=== PATIENT | male | born 1965 | race Caucasian/White ===

== ENCOUNTER 2025-03-28 13:52 | Outpatient (CLI) | payer BC, SELFPAY | END 2025-03-28 13:53 | disposition home or self-care (01) | PROVIDERS: PCP Family Medicine; Visit Provider Family Medicine | DX: M54.16 Radiculopathy, lumbar region (principal); M51.369 Other intervertebral disc degeneration, lumbar region without mention of lumbar back pain or lower extremity pain | CPT/HCPCS: 62323; J0702; Q9966 ==

== ENCOUNTER 2025-08-29 09:26 | Outpatient (CLI) | payer BC, SELFPAY | END 2025-08-29 09:27 | disposition home or self-care (01) | LOC: RAD 09:28 | PROVIDERS: PCP Family Medicine; Visit Provider Family Medicine | DX: M54.16 Radiculopathy, lumbar region (principal); M51.26 Other intervertebral disc displacement, lumbar region; M47.816 Spondylosis without myelopathy or radiculopathy, lumbar region; M51.369 Other intervertebral disc degeneration, lumbar region without mention of lumbar back pain or lower extremity pain; M54.41 Lumbago with sciatica, right side | CPT/HCPCS: 62323; J0702; Q9966 ==